=== PATIENT | female | born 1985 | race Caucasian/White ===

== ENCOUNTER 2018-08-20 06:01 | Inpatient (IN) | payer OTHER ==
[~2018-08-20] VITALS: Ht 160 cm; Wt 71.7 kg
[2018-08-20] MEDS ORDERED: DICLEGIS DR 101 EACH PO (08:46)
[2018-08-20] MEDS ORDERED: PRENATAL TABLE1 EAC3 PO (08:46)
== END 2018-08-23 11:56 | DRG 788 ==
LOC: LDR 06:01 → SURG-SUITE 06:01 → O/R 14:16 → SURG-SUITE 15:08
PROVIDERS: Obstetrics & Gynecology
PROC: 4A1HXCZ Monitoring of Products of Conception, Cardiac Rate, External Approach (ICD-10-PCS; 2018-08-20)
PROC: 3E033VJ Introduction of Other Hormone into Peripheral Vein, Percutaneous Approach (ICD-10-PCS; 2018-08-20)
PROC: 4A033R1 Measurement of Arterial Saturation, Peripheral, Percutaneous Approach (ICD-10-PCS; 2018-08-20)
PROC: 10D00Z1 Extraction of Products of Conception, Low, Open Approach (ICD-10-PCS; principal; 2018-08-20 12:45)
DX: O61.0 Failed medical induction of labor (principal); O76 Abnormality in fetal heart rate and rhythm complicating labor and delivery; Z3A.40 40 weeks gestation of pregnancy; Z37.0 Single live birth

== ENCOUNTER 2020-01-21 12:33 | Inpatient (IN) | payer OTHER ==
[~2020-01-21] VITALS: Ht 160 cm; Wt 3.6 kg
[~2020-01-21 12:33] MED LIST: DICLEGIS DR 101 EACH PO; PRENATAL TABLE1 EAC3 PO
[2020-01-21] MEDS ORDERED: PRENATAL + DHA1 EAC1 PO (14:23)
[2020-01-21] MEDS ORDERED: FOLIC ACID0.8 M1 PO (14:23)
== END 2020-01-23 10:50 | disposition home or self-care (01) | DRG 785 ==
LOC: LDR 12:33 → OB/GYN 12:33 → LDR 12:56 → O/R 14:52 → OB/GYN 16:27
PROVIDERS: ADMIT Obstetrics & Gynecology
PROC: 0UB70ZZ Excision of Bilateral Fallopian Tubes, Open Approach (ICD-10-PCS; 2020-01-21)
PROC: 4A1HXFZ Monitoring of Products of Conception, Cardiac Rhythm, External Approach (ICD-10-PCS; 2020-01-21)
PROC: 3E033VJ Introduction of Other Hormone into Peripheral Vein, Percutaneous Approach (ICD-10-PCS; 2020-01-21)
PROC: 10D00Z1 Extraction of Products of Conception, Low, Open Approach (ICD-10-PCS; principal; 2020-01-21 14:30)
DX: O63.0 Prolonged first stage (of labor) (principal); O34.211 Maternal care for low transverse scar from previous cesarean delivery; Z30.2 Encounter for sterilization; Z3A.38 38 weeks gestation of pregnancy; Z37.0 Single live birth